=== PATIENT | female | born 1975 | race Two or more races ===

== ENCOUNTER 2023-01-11 11:38 | Emergency (ER) | payer MEDICAID ==
[~2023-01-11] VITALS: Ht 152.4 cm; Wt 82.0 kg
[~2023-01-11 11:38] MED LIST: PRENATAL VITAMINS PO
[2023-01-11] MEDS ORDERED: SODIUM CHLORIDE 0.9% 1,000 ML IV ONE (12:00)
[2023-01-11] MEDS ORDERED: MECLIZINE HCL 25 MG TAB PO ONE (12:00)
[2023-01-11 12:45] LABS: Urine Bacteria FEW /hpf (None Seen); Urine Blood Negative /uL (Negative); Urine Specific Gravity 1.014 (1.001-1.035); Urine WBC 94 /hpf (0 - 5)
[2023-01-11 12:55] LABS: Basophils # (auto) 0 10 ^3/uL (0-0.2); Basophils % (auto) 0.5 % (0.0-2.0); Eosinophils # (auto) 0.4 10 ^3/uL (0-0.8); Eosinophils % (auto) 4.1 % (0.0-7.0); Hematocrit 34.9 % (36.0-46.0); Hemoglobin 11.5 g/dL (12.2-16.2); Lymphocytes # (auto) 2.4 10 ^3/uL (0.4-5.4); Lymphocytes % (auto) 25.9 % (10.0-50.0); Mean Corpuscular Hemoglobin 27.1 pg (28.0-32.0); Mean Corpuscular Hgb Conc. 32.9 g/dL (32.0-36.0); Mean Corpuscular Volume 82.3 fL (80.0-100.0); Monocytes # (auto) 0.5 10 ^3/uL (0-1.3); Monocytes % (auto) 4.9 % (0.0-12.0); Neutrophils % (auto) 64.6 % (37.0-80.0); Red Blood Cells 4.24 10^6/uL (4.0-5.20); Red Cell Distribution Width 14.4 % (11.8-14.3); White Blood Cell 9.3 10^3/uL (4.4-10.8)
[2023-01-11 13:21] LABS: Calcium 8.3 mg/dL (8.5-10.1); Magnesium 2.2 mg/dL (1.6-2.6); Potassium 4.5 mmol/L (3.5-5.1)
[2023-01-11 13:28] LABS: Albumin 3.1 g/dL (3.4-5.0); BUN/Creatinine Ratio 18.2 (10.0-20.0); Bilirubin, Total 0.6 mg/dL (0.2-1.0); Total Protein 7.6 g/dL (6.4-8.2)
[2023-01-11 13:57] LABS: CRP High Sensitivity 2.8 mg/dL (< 0.3)
[2023-01-11] MEDS ORDERED: cefTRIAXone 1GM/50ML D5W 50 ML IV ONE (14:30)
[2023-01-11] MEDS ORDERED: InsuLIN REG 1unit/0.01ml Soln (100units/ml) IV ONE (14:30)
[2023-01-11 17:38] VITALS: BP 120/75
[2023-01-11] MEDS ORDERED: CEPH500C PO (17:56)
[2023-01-11] MEDS ORDERED: MECL1TAB32 PO (17:56)
== END 2023-01-11 18:08 | disposition home or self-care (01) ==
LOC: ER 11:38
DX: S00.03XA Contusion of scalp, initial encounter (principal); N39.0 Urinary tract infection, site not specified; E11.65 Type 2 diabetes mellitus with hyperglycemia; R42 Dizziness and giddiness; E78.5 Hyperlipidemia, unspecified; I10 Essential (primary) hypertension; R06.02 Shortness of breath; W18.39XA Other fall on same level, initial encounter; Y93.89 Activity, other specified; Y92.89 Other specified places as the place of occurrence of the external cause; Y99.8 Other external cause status
CPT/HCPCS: 36415; 70450; 71045; 74176; 80053; 81001; 82010; 82962; 83605; 83690; 83735; 83880; 84484; 85025; 86141; 87040; 87086; 93005; 96361; 96365; 96375; 99285; J0696; J1815; J7030; J8597

== ENCOUNTER 2024-08-14 12:39 | Emergency (ER) | payer MEDICAID ==
[~2024-08-14] VITALS: Ht 162.6 cm; Wt 83.3 kg
[~2024-08-14 12:39] MED LIST changes: +CEPH500C PO; +MECL-90 PO
--- NOTE | 2024-08-14 13:11 | ED.PDOC ---
History of Present Illness HPI Comments This is a 48-year-old female who comes in with chief complaint of headache as well as cough and congestion with fever. The patient states that the symptoms started on Sunday and seems to have worsened. The patient was also now having some body aches and did have a couple episodes of nausea and vomiting. The patient was able to ambulate into the emergency department. The patient had a fever upon arrival. Chief Complaint: Flu like Time Seen by MD: 12:56 Primary Care Provider: FERN Reviewed Notes: Nurses Notes, Medications, Allergies (No allergies to medications) Allergies: Coded Allergies: NO KNOWN ALLERGIES (Unverified , 12/29/10) Home Meds Active Scripts Oseltamivir Phosphate (Tamiflu) 45 Mg Cap, 1 CAP PO BID, #10 CAP Prov:TATIANA CRAWFORD MD 08/14/24 Meclizine Hcl (Meclizine Hcl) 25 Mg Tab, 25 MG PO [id number] PRN for 5 Days, #10 MG Prov:CHRISTIANO HILLS DO 01/11/23 Cephalexin Monohydrate (Cephalexin) 500 Mg Cap, 500 MG PO Q8HR for 7 Days, #21 TAB Prov:CHRISTIANO HILLS DO 01/11/23 Reported Medications [ Vitamins] No Conflict Check, 1 TAB PO DAILY 12/30/10 Information Source: Patient Mode of Arrival: Ambulatory Severity: Mild Timing: Days Duration: Since onset Prehospital treatment: None Associated signs and symptoms Cough and congestion with body aches, fever, nausea and vomiting Past Medical History PAST MEDICAL HISTORY: DM, High Lipids, HTN Surgical History: Denies all surgeries [employer] History: 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 Family History Family History: No family hx of Heart misa, No family hx of HTN, Family hx of DM Social History Smoker: Cigarettes Alcohol: Occasionally Drugs: Denies Drug Use Lives In: Home Constitutional: reports: chills, fever, others (Body aches); denies: ignacio phoresis, fatigue, malaise, sweats, weakness EENTM: reports: others (Congestion); denies: blurred vision, double vision, ear bleeding, ear discharge, ear drainage, ear pain, ear ringing, eye pain, eye redness, hearing loss, mouth pain, mouth swelling, nasal discharge, nose bleeding, nose congestion, nose pain, photophobia, tearing, throat pain, throat swelling, voice changes Respiratory: reports: cough; denies: hemoptysis, orthopnea, SOB at rest, shortness of breath, SOB with excertion, stridor, wheezing, others Cardiovascular: denies: chest pain, dizzy spells, diaphoresis, Dyspnea on exertion, edema, irregular heart beat, left arm pain, lightheadedness, palpitations, PND, syncope, others Gastrointestinal: reports: nausea, vomiting; denies: abdomen distended, abdominal pain, blood streaked bowels, constipated, diarrhea, dysphagia, difficulty swallowing, hematemesis, melena, poor appetite, poor fluid intake, rectal bleeding, rectal pain, others Genitourinary: denies: abnormal vagina bleeding, burning, dyspareunia, dysuria, flank pain, frequency, hematuria, incontinence, pain, , vagina discharge, urgency, others Neurological: denies: dizziness, fainting, headache, left sided numbness, left sided weakness, numbness, paresthesia, pre-existing deficit, right sided numbness, right sided weakness, seizure, speech problems, tingling, tremors, weakness, others Musculoskeletal: denies: back pain, gout, joint pain, joint swelling, muscle pain, muscle stiffness, neck pain, others Integumetry: denies: bruises, change in color, change in hair/nails, dryness, laceration, lesions, lumps, rash, wounds, others Allergic/Immunocompromised: denies: Difficulty Healing, Frequent Infections, Hives, Itching, others Hematologic/Lymphatic: denies: anemia, blood clots, easy bleeding, easy bruising, swollen glands, others Endocrine: denies: excessive hunger, excessive sweating, excessive thirst, excessive urination, flushing, intolerance to cold, intolerance to heat, unexplained weight gain, unexplained weight loss, others Psychiatric: denies: anxiety, bipolar disorder, depression, hopeless, panic disorder, schizophrenia, sleepless, suicidal, others Physical Exam General Appearance: No Apparent Distress, Other (Warm to touch) HEENT: Normal ENT Inspection, Pharynx Normal, TMs Normal Neck: Full Range of Motion, Non-Tender, Normal, Normal Inspection Respiratory: Chest Non-Tender, Lungs Clear, No Accessory Muscle Use, No Respiratory Distress, Normal Breath Sounds Cardiovascular: No Edema, No JVD, No Murmur, No Gallop, Tachycardia Breast Exam: Deferred Gastrointestinal: No Organomegaly, Non Tender, No Pulsatile Mass, Normal Bowel Sounds, Soft Genitalia: Deferred Pelvic: Deferred Rectal: Deferred Extremities: No calf tenderness, Normal capillary refill, Normal inspection, Normal range of motion, Non-tender, No pedal edema Musculoskeletal : Apperance: Normal Neurologic: Alert, hog sticker II-XII nml as Tested, No Motor Deficits, Normal Affect, Normal Mood, No Sensory Deficits Cerebellar Function: Normal Reflexes: Normal Skin: Dry, Normal Color, Warm Lymphatic: No Adenopathy Was a procedure done? Was a procedure done?: No Differential Dx Considerations may include: Bronchitis, pneumonia, influenza X-Ray, Labs, Meds, VS Vital Signs Date Time Temp Pulse Resp B/P (MAP) Pulse Ox O2 Delivery O2 Flow Rate FiO2 08/14/24 13:12 100.1 122 20 125/76 (92) 98 100.1 08/14/24 13:12 122 20 98 Room Air 08/14/24 13:01 100.1 122 20 125/76 (92) 98 Lab Test 08/14/24 13:21 08/14/24 13:06 Range/Units Influenza Type A Antigen Positive Negative Influenza Type B Antigen Negative Negative SARS-CoV-2 Antigen (Rapid) Negative NEGATIVE POC Glucose 366 H 70-106 mg/dl Current Medications Medications (Trade) Dose Ordered Sig/Galo Route Start Time Stop Time Status Last Admin Acetaminophen (Tylenol Tablet) 650 mg ONCE ONCE PO 08/14/24 13:15 08/14/24 13:16 DC 08/14/24 13:19 The patient's influenza a is positive The influenza B and COVID test are negative The patient was given acetaminophen 650 mg by mouth for the fever of 100.1 The patient was being discharged and will return to the emergency department's condition worsens. The patient was given a prescription of Tamiflu Images Reviewed?: Images reviewed and evaluated by me Time of 1ST Reevaluation: 13:11 Reevaluation 1ST: Unchanged Patient Education/Counseling: Diagnosis, Treatment, Prognosis, Need For Follow Up Family Education/Counseling: No Family Present Departure 1 Departure Time of Disposition: 14:07 Impression: Primary Impression: Influenza A Disposition: 01 HOME / SELF CARE / HOMELESS Condition: Fair e-Prescriptions Oseltamivir Phosphate (Tamiflu) 45 Mg Cap 1 CAP PO BID, #10 CAP Prov: TY,TATIANA B MD 08/14/24 Discharged With: Self Critical Care Note Critical Care Time?: No Stability Stability form required: No Heart Score Heart Score: Heart Score Response (Comments) Value History N/A 0 EKG N/A 0 Age N/A 0 Risk Factors N/A 0 Troponin N/A 0 Total 0 TATIANA CRAWFORD MD Aug 14, 2024 13:11
[2024-08-14 13:12] VITALS: BP 125/76; PULSE 122; RESP 20; TEMP 100.1; O2SAT 98
[2024-08-14] MEDS: ACETAMINOPHEN 325 MG TAB PO ONE (13:19)
--- NOTE | 2024-08-14 13:44 | DVH ---
XY CHEST TWO VIEWS ROUTINE CLINICAL HISTORY: cough COMPARISON: None TECHNIQUE: Frontal and lateral view of the chest was obtained FINDINGS: Lines and Tubes: None Lungs: No focal consolidation. Pleura: No effusion. No pneumothorax. Cardiomediastinal contours: Unremarkable Bones: No acute osseous abnormality. IMPRESSION: No acute cardiopulmonary disease.
[2024-08-14 13:58] LABS: COVID19 ANTIGEN SOFIA FIA NEGATIVE (NEGATIVE)
[2024-08-14 13:59] LABS: Rapid Influenza B Negative (Negative)
[2024-08-14 14:02] LABS: Rapid Influenza A Positive (Negative)
[2024-08-14] MEDS ORDERED: OSEL45CA PO (14:07)
== END 2024-08-14 14:11 | disposition home or self-care (01) ==
LOC: ER 12:39
DX: J10.1 Influenza due to other identified influenza virus with other respiratory manifestations (principal); I10 Essential (primary) hypertension; E11.9 Type 2 diabetes mellitus without complications; E78.5 Hyperlipidemia, unspecified; F17.210 Nicotine dependence, cigarettes, uncomplicated; Z79.899 Other long term (current) drug therapy; Z20.822 Contact with and (suspected) exposure to COVID-19
CPT/HCPCS: 36415; 71046; 82962; 87426; 87804